=== PATIENT | male | born 1955 | race Caucasian/White ===

== ENCOUNTER 2023-08-14 04:14 | Day surgery (SDC) | payer BC ==
[2023-08-09 11:27] VITALS: BMI 23.0
[2023-08-14] MEDS ORDERED: DEXTROSE 5%-0.45% SALINE 1,000 ML IV SCH (09:00)
[2023-08-14] MEDS ORDERED: PROPOFOL 20 ML ONE (09:07)
[2023-08-14] MEDS ORDERED: LIDOCAINE HCL/PF 2% SDV 5ML VIAL ONE (09:07)
[2023-08-14] MEDS ORDERED: MIDAZOLAM HCL 2 MG/2 ML SINGLE DOSE VIAL ONE (09:08)
[2023-08-14] MEDS: ceFAZolin SODIUM 1 GM VIAL IVPB ONE (09:28)
[2023-08-14] MEDS ORDERED: ceFAZolin SODIUM 1 GM VIAL ONE (09:29)
[2023-08-14] MEDS ORDERED: DEXAMETHASONE SOD PHOSPHATE 4 MG/1 ML VIAL ONE (09:29)
[2023-08-14] MEDS ORDERED: KETOROLAC TROMETHAMINE 30 MG/1 ML VIAL ONE (09:37)
[2023-08-14] MEDS ORDERED: ONDANSETRON 4 MG/2 ML VIAL ONE (09:37)
[2023-08-14] MEDS ORDERED: PROMETHAZINE HCL 25 MG/1 ML VIAL IVPB PRN (09:43)
[2023-08-14] MEDS ORDERED: ONDANSETRON 4 MG/2 ML VIAL IVPUSH PRN (09:43)
[2023-08-14] MEDS ORDERED: oxyCODONE HCL 5 MG TABLET PO PRN ×2 (09:43)
[2023-08-14] MEDS ORDERED: ACETAMINOPHEN INJECTION 100 ML IVPB ONE (10:18)
[2023-08-14] MEDS: ACETAMINOPHEN 1000 MG/100 ML BAG IVPB ONE (10:20)
[2023-08-14] MEDS: LACTATED RINGERS SOLUTION 1,000 ML IV SCH (10:21)
[2023-08-14 13:58] VITALS: BP 126/92; PULSE 85; RESP 20; TEMP 98.4
== END 2023-08-14 12:45 | disposition home or self-care (01) ==
LOC: JASU-SURG 04:14
PROVIDERS: ATTEND Urology
PROC: 0VB60ZZ Excision of Right Tunica Vaginalis, Open Approach (ICD-10-PCS; principal; 2023-08-14 09:30)
DX: N43.3 Hydrocele, unspecified (principal)
CPT/HCPCS: 88302-TC; 94760; J0131

== ENCOUNTER 2024-05-02 09:54 | Emergency (ER) | payer BC ==
[2024-05-02 10:04] VITALS: BP 142/91; PULSE 79; RESP 18; TEMP 98.2; BMI 23.0
[2024-05-02] MEDS ORDERED: IBUPROFEN 600 MG TABLET (FP) PO ONE (10:18)
[2024-05-02] MEDS: IBUPROFEN 600 MG TABLET (FP) PO ONE (10:25)
[2024-05-02 12:10] LABS: HIV INTERPRETATION NEGATIVE (NEGATIVE)
== END 2024-05-02 12:50 | disposition home or self-care (01) ==
LOC: JER 09:54 → JERFT 09:54
DX: S69.92XA Unspecified injury of left wrist, hand and finger(s), initial encounter (principal); M21.932 Unspecified acquired deformity of left forearm; M19.071 Primary osteoarthritis, right ankle and foot; G89.29 Other chronic pain; W01.0XXA Fall on same level from slipping, tripping and stumbling without subsequent striking against object, initial encounter
CPT/HCPCS: 36415; 73110-TC-LT-FY; 73130-TC-LT-FY; 86803; 87389; 87522; 99284-25